=== PATIENT | female | born 1965 | race Caucasian/White ===

== ENCOUNTER → 2018-09-14 | Outpatient (CLI) | payer OTHER ==
--- NOTE | 2018-09-14 15:25 | RADIOLOGY IMAGING REPORT ---
FACILITY: [facility] - [place] PATIENT NAME: Erica Ramirez : 1965 MR: [id number] V: [id number] EXAM DATE: ORDERING PHYSICIAN: CHUCHO LUCAS TECHNOLOGIST: Location: [facility] - [place] Patient: Erica Ramirez : 1965 Visit/Account:[id number] Date of Sevice: 09/14/2018 PELVIC HISTORY: Last menstrual. Six months ago, history of fibroids TECHNIQUE: Transvaginal transabdominal ultrasound pelvis. COMPARISON: CT abdomen pelvis December 10, 2008 FINDINGS: Uterus: ; 7.5 cm length x 3.8 cm AP x 5.6 cm transverse. Myometrium: The myometrium appears heterogeneous. There is a 1.9 x 1.5 x 2.2 cm subserosal fibroid a long the posterior aspect uterine body. Endometrium: Appears thin; double thickness 1.7 mm. Cervix: Grossly negative. Ovaries: Right - 1.8 x 1.5 x 2.6 in meters Left - 1.7 x 1.4 x 2 cm Blood flow is documented in each ovary by duplex Doppler ultrasound. Adnexa: Grossly unremarkable. Free pelvic fluid: None. IMPRESSION: There is a 1.9 x 1.5 x 2.2 cm subserosal fibroid along the posterior aspect uterine body Report Dictated By: Malinda Bee MD at 09/14/2018 2:55 PM Report E-Signed By: Malinda Bee MD at 09/14/2018 3:20 PM WSN:[id number]
--- NOTE | 2018-09-14 15:27 | RADIOLOGY IMAGING REPORT ---
FACILITY: [facility] [place] PATIENT NAME: Erica Ramirez : 1965 MR: [id number] V: [id number] EXAM DATE: ORDERING PHYSICIAN: CHUCHO LUCAS TECHNOLOGIST: Location: [facility] - [place] Patient: Erica Ramirez : 1965 Visit/Account:[id number] Date of Sevice: 09/14/2018 THYROID HISTORY: History of thyroid nodules COMPARISON: April 21, 2017 FINDINGS: SIZE: Right lobe: 4.7 x 1.1 x 1.4 cm Left lobe: 4.4 x 0.7 x 1.1 cm Isthmus: 2 mm PARENCHYMA: Homogeneous. NODULES: Right lobe: * At least three well-circumscribed solid hypoechoic nodules are identified in the right lobe to john sure less than 1 cm. The one dominant nodule in the inferior pole measures 1.6 x 1.1 x 1.2 cm and ap pears unchanged in size. There is additionally a small 4 mm cyst in the mid right lobe containing a punctate calcification. Left lobe: * None discrete. Isthmus: * None discrete. VASCULARITY: Within normal limits. ADDITIONAL FINDINGS: None. IMPRESSION: There is a solid well-circumscribed hypoechoic nodule inferior aspect right lobe measuring 1.6 x 1.1 x 1.2 cm. This is unchanged in size when compared the prior study although ultrasound-guided fine-ne edle aspiration is recommended based on the size. REFERENCE: 2015 [place] [employer] Management Guidelines for Adult Patients with Thyroid Nodules and D ifferentiated Thyroid Cancer: The [place] [employer] Guidelines Task Force on Thyroid Nodul es and Differentiated Thyroid Cancer. SONOGRAPHIC PATTERNS: * Benign: Purely cystic nodules (no solid component); estimated risk of malignancy <1 percent; no bi opsy recommended. * Very Low Suspicion: Spongiform or partially cystic nodules without any of the sonographic features described in low, intermediate, or high suspicion patterns; estimated risk of malignancy <3 percent; consider FNA at > 2 cm (Observation without FNA is also a reasonable option). * Low Suspicion: Isoechoic or hyperechoic solid nodule, or partially cystic nodule with eccentric so lid areas, without microcalcification, irregular margin or ETE (extra-thyroidal extension), or taller than wide shape; estimated risk of malignancy 5-10 percent; recommend FNA at >1.5 cm. * Intermediate Suspicion: Hypoechoic solid nodule with smooth margins without microcalcifications, E TE (extra-thyroidal extension), or taller than wide shape; estimated risk of malignancy 10-20 percent ; recommend FNA at > 1 cm. * High Suspicion: Solid hypoechoic nodule or solid hypoechoic component of a partially cystic nodule with one or more of the following features: irregular margins (infiltrative, microlobulated), microc alcifications, taller than wide shape, rim calcifications with small extrusive soft tissue component, evidence of ETE (extra-thyroidal extension); estimated risk of malignancy >70-90 percent; recommend FNA at > 1 cm. NOTES: * Although a sonographically suspicious subcentimeter thyroid nodule without evidence of extrathyroi thania extension or sonographically suspicious lymph nodes may be observed with close sonographic follow -up rather than pursuing immediate FNA, patient age and preference may modify decision-making. A > 50% interval increase in nodule volume and/or development of new suspicious sonographic features are felt to be a valid reasons for potential re-aspiration of a nodule previously shown to have benig n FNA cytology. Report Dictated By: Malinda Bee MD at 09/14/2018 3:20 PM Report E-Signed By: Malinda Bee MD at 09/14/2018 3:24 PM WSN:[email or web address]
--- NOTE | 2018-09-17 10:18 | RADIOLOGY IMAGING REPORT ---
FACILITY: [facility] - [place] PATIENT NAME: LEEANN PEACE : [id number] MR: [id number] V: [id number] EXAM DATE: [id number] ORDERING PHYSICIAN: CHUCHO LUCAS TECHNOLOGIST: Shellie Murillo PROCEDURE:BILATERAL DIGITAL SCREENING MAMMOGRAM WITH CAD ASSISTED INTERPRETATION & 3D TOMOSYNTHESIS COMPARISON:Prior mammograms 04/29/16. INDICATIONS:SCREENING FINDINGS: The breasts are heterogeneous dense which can obscure small masses. The parenchymal pattern has remained stable allowing for difference in mammographic technique & patient positioning. DIAGNOSTIC CATEGORY 1--NEGATIVE. RECOMMENDATIONS: ROUTINE MAMMOGRAM AND CLINICAL EVALUATION. IMPRESSION: BIRADS 1: Negative. No significant abnormality is seen. Dictated by: Malinda Bee M.D. on 09/14/2018 at 15:10 Transcribed by: TERESA on 09/14/2018 at 15:21 Approved by: Malinda Bee M.D. on 09/17/2018 at 10:17 [facility]
== END ==
LOC: MAMO 00:44
PROVIDERS: ATTEND Family Medicine
DX: Z12.31 Encounter for screening mammogram for malignant neoplasm of breast (principal); E04.2 Nontoxic multinodular goiter; D25.9 Leiomyoma of uterus, unspecified
CPT/HCPCS: 76536; 76830; 76856; 77063; 77067

== ENCOUNTER → 2019-03-06 | Outpatient (CLI) | payer OTHER ==
--- NOTE | 2019-03-06 08:19 | EKG ---
FACILITY: [facility] - [place] PATIENT NAME: LEEANN PEACE : [id number] MR: [id number] V: [id number] EXAM DATE: ORDERING PHYSICIAN: ALLA CARRINGTON TECHNOLOGIST: DINA Test Reason : PRE OP Blood Pressure : / mmHG Vent. Rate : 044 BPM Atrial Rate : 044 BPM P-R Int : 144 ms QRS Dur : 086 ms QT Int : 492 ms P-R-T Axes : 034 079 061 degrees QTc Int : 420 ms Marked sinus bradycardia Abnormal ECG When compared with ECG of 06-APR-2017 14:14, No significant change was found Confirmed by ALLA DANIEL ([id number]) on 03/06/2019 9:04:33 AM Referred By: ZEB Confirmed By:ALLA DANIEL
== END ==
LOC: LAB 07:53
PROVIDERS: ATTEND Anesthesiology
DX: Z01.812 Encounter for preprocedural laboratory examination (principal); Z01.810 Encounter for preprocedural cardiovascular examination; M75.101 Unspecified rotator cuff tear or rupture of right shoulder, not specified as traumatic; M75.41 Impingement syndrome of right shoulder; M19.011 Primary osteoarthritis, right shoulder; E07.9 Disorder of thyroid, unspecified; R94.31 Abnormal electrocardiogram [ECG] [EKG]
CPT/HCPCS: 36415; 84443; 93005